=== PATIENT | male | born 2000 | race Caucasian/White ===

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

== ENCOUNTER 2020-06-28 00:22 | Emergency (ER) | payer MEDICAID ==
[~2020-06-28 00:22] MED LIST changes: +ONDA4TAB8 PO; +PROM25SU43 RC; -TRAZ-190 PO; +TRAZ-227 PO
[2020-06-28] MEDS ORDERED: LACTATED RINGERS 1,000 ML IV ONE ×2 (00:30→01:15)
[2020-06-28] MEDS ORDERED: LORazepam INJ 2 MG/ML (ATIVAN) VIAL IVP ONE (00:30)
[2020-06-28 00:47] LABS: ALBUMIN 4.8 GM/DL (3.2-4.5)
[2020-06-28 00:48] LABS: CHLORIDE 105 MMOL/L (98-107); POTASSIUM 3.8 MMOL/L (3.6-5.0); SODIUM 139 MMOL/L (135-145)
[2020-06-28 00:49] LABS: CALCIUM 9.2 MG/DL (8.5-10.1)
[2020-06-28 00:50] LABS: BASOPHILS # (AUTO) 0.1 10^3/uL (0.0-0.1); BASOPHILS % (AUTO) 1 % (0-10); EOSINOPHILS # (AUTO) 0.1 10^3/uL (0.0-0.3); EOSINOPHILS % (AUTO) 1 % (0-10); GLUCOSE 103 MG/DL (70-105); HEMATOCRIT 44 % (40-54); HEMOGLOBIN 14.6 g/dL (13.3-17.7); LYMPHOCYTES # (AUTO) 3.5 10^3/uL (1.0-4.0); LYMPHOCYTES % (AUTO) 33 % (12-44); MEAN CORPUSCULAR HEMOGLOBIN 31 pg (25-34); MEAN CORPUSCULAR HGB CONC 33 g/dL (32-36); MEAN CORPUSCULAR VOLUME 92 fL (80-99); MEAN PLATELET VOLUME 10.9 fL (9.0-12.2); MONOCYTES # (AUTO) 0.7 10^3/uL (0.0-1.0); MONOCYTES % (AUTO) 7 % (0-12); NEUTROPHILS # (AUTO) 6.2 10^3/uL (1.8-7.8); NEUTROPHILS % (AUTO) 58 % (42-75); PLATELET COUNT 196 10^3/uL (130-400); TOTAL PROTEIN 7.5 GM/DL (6.4-8.2); WHITE BLOOD COUNT 10.6 10^3/uL (4.3-11.0)
[2020-06-28 00:51] LABS: CARBON DIOXIDE 20 MMOL/L (21-32)
[2020-06-28 00:52] LABS: BILIRUBIN,TOTAL 0.3 MG/DL (0.1-1.0)
[2020-06-28 00:54] LABS: ALKALINE PHOSPHATASE 85 U/L (40-136); CREATININE SERUM 0.95 MG/DL (0.60-1.30); GFR ESTIMATED > 60
[2020-06-28 00:55] LABS: BUN/CREATININE RATIO 9
[2020-06-28 00:57] LABS: ALANINE AMINOTRANSFERASE 20 U/L (0-55); CREATINE KINASE 869 U/L (30-200); MAGNESIUM 2.1 MG/DL (1.6-2.4)
[2020-06-28 02:55] LABS: AMPHETAMINE SCREEN, URINE NEGATIVE (NEGATIVE); BARBITURATE SCREEN URINE NEGATIVE (NEGATIVE); BENZODIAZEPINES SCREEN URINE NEGATIVE (NEGATIVE); CANNABINOID SCREEN, URINE NEGATIVE (NEGATIVE); COCAINE SCREEN URINE NEGATIVE (NEGATIVE); METHADONE STAT NEGATIVE (NEGATIVE); METHAMPHETAMINE SCREEN URINE S NEGATIVE (NEGATIVE); OPIATE SCREEN URINE NEGATIVE (NEGATIVE); OXYCODONE STAT NEGATIVE (NEGATIVE); PROPOXYPHENE STAT NEGATIVE (NEGATIVE); TRICYCLIC ANTIDEPRESSANTS SCRE NEGATIVE (NEGATIVE)
--- NOTE | 2020-06-28 03:20 | ED Neurological Problem ---
General Chief Complaint: General Problems/Pain Stated Complaint: TWITCHES Nursing Triage Note: TO ED VIA [facility]UL[facility] INTO ROOM 5 WITH C/O TWITCHING SINCE Wednesday06/23/20 AFTER "MENTAL BREAKDOWN". C/O PAIN TO BACK, LEFT SIDE OF HEAD. Nursing Sepsis Screen: No Definite Risk Source: patient Exam Limitations: no limitations History of Present Illness Date Seen by Provider: Jun 28, 2020 Time Seen by Provider: 00:23 Initial Comments This 19-year-old young man presents to the emergency room via EMS with complaints of dystonic movements and headache. He reports the symptoms started and have been present since he had a "mental breakdown" on Wednesday, 6 days ago. He reports having episodes like this when he was younger but with less intensity. He denies taking any medications, drinking alcohol, or using any recent illicit drugs. 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 Allergies and Home Medications Allergies Coded Allergies: No Known Drug Allergies (Unverified , 04/02/17) Home Medications Hydroxyzine HCl 25 Mg Tablet, 25 MG PO TID, (Reported) Olanzapine 15 Mg Tab.rapdis, 15 MG SL DAILY, (Reported) Ondansetron 4 Mg Tab.rapdis, 4 MG PO Q4H Prescribed by: FAUSTINA SAENZ on 10/26/17 0501 Peg/Electrolytes 4,000 Ml Soln, 4,000 ML PO DAILY Prescribed by: SHAILESH MCGILL on 04/04/17 1158 Promethazine HCl 25 Mg Supp.rect, 25 MG RC Q4H Prescribed by: FAUSTINA SAENZ on 10/26/17 0501 Trazodone HCl 100 Mg Tablet, 200 MG PO HS, (Reported) TAKES 2 (100 MG) TABLETS Patient Home Medication List Home Medication List Reviewed: Yes Review of Systems Review of Systems Constitutional: no symptoms reported Eyes: No Symptoms Reported Ears, Nose, Mouth, Throat: no symptoms reported Respiratory: no symptoms reported Cardiovascular: no symptoms reported Gastrointestinal: no symptoms reported Genitourinary: no symptoms reported Musculoskeletal: no symptoms reported Skin: no symptoms reported Psychiatric/Neurological: See HPI Endocrine: No Symptoms Reported Hematologic/Lymphatic: No Symptoms Reported Past Tozflxz-Yxldco-Nydykn Hx Past Med/Social Hx: Reviewed Nursing Past Med/Soc Hx Patient Social History Alcohol Use: Past History Drug of Choice: HX: MARIJUANA, METH, COCAINE Smoking Status: Current Everyday Smoker Type Used: Cigarettes, Electronic/Vapor 2nd Hand Smoke Exposure: Yes Recent Infectious Disease Expo: No Recent Hopitalizations: No Immunizations Up To Date Tetanus Booster (TDap): Less than 5yrs PED Vaccines UTD: Yes Date of Influenza Vaccine: Apr 02, 2017 Seasonal Allergies Seasonal Allergies: Yes Past Medical History Surgeries: Yes (LT KNEE SCOPE) Adenoidectomy, Orthopedic, Tonsillectomy Respiratory: No Cardiac: No Neurological: No Reproductive Disorders: No Genitourinary: No Gastrointestinal: Yes Chronic Constipation Musculoskeletal: Yes Scoliosis Endocrine: Yes Hypothyroidsim HEENT: No Cancer: No Psychosocial: Yes (OCD; ANGER ISSUES) ADD/ADHD, Anxiety, PTSD, Bipolar, Violent Behavior Integumentary: No Blood Disorders: No Adverse Reaction/Blood Tranf: No Family Medical History No Pertinent Family Hx Physical Exam Vital Signs Vital Signs - First Documented 06/28/20 00:25 Temp 35.8 Pulse 76 Resp 16 B/P (MAP) 138/99 (112) Pulse Ox 98 O2 Delivery Room Air Capillary Refill : Less Than 3 Seconds Height, Weight, BMI Height: 5'11.00" Weight: 180lbs. 0.0oz. 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 Dystonic movements noted.) Crainal Nerves: normal hearing, normal speech, PERRL Coordination/Gait: normal finger to nose Motor/Sensory: no motor deficit, no sensory deficit Skin: normal color, warm/dry Progress/Results/Core Measures Results/Orders Lab Results Laboratory Tests Test 06/28/20 00:32 06/28/20 02:25 Range/Units White Blood Count 10.6 4.3-11.0 10^3/uL Red Blood Count 4.77 4.30-5.52 10^6/uL Hemoglobin 14.6 13.3-17.7 g/dL Hematocrit 44 40-54 % Mean Corpuscular Volume 92 80-99 fL Mean Corpuscular Hemoglobin 31 25-34 pg Mean Corpuscular Hemoglobin Concent 33 32-36 g/dL Red Cell Distribution Width 13.3 10.0-14.5 % Platelet Count 196 130-400 10^3/uL Mean Platelet Volume 10.9 9.0-12.2 fL Immature Granulocyte % (Auto) 0 % Neutrophils (%) (Auto) 58 42-75 % Lymphocytes (%) (Auto) 33 12-44 % Monocytes (%) (Auto) 7 0-12 % Eosinophils (%) (Auto) 1 0-10 % Basophils (%) (Auto) 1 0-10 % Neutrophils # (Auto) 6.2 1.8-7.8 10^3/uL Lymphocytes # (Auto) 3.5 1.0-4.0 10^3/uL Monocytes # (Auto) 0.7 0.0-1.0 10^3/uL Eosinophils # (Auto) 0.1 0.0-0.3 10^3/uL Basophils # (Auto) 0.1 0.0-0.1 10^3/uL Immature Granulocyte # (Auto) 0.0 0.0-0.1 10^3/uL Sodium Level 139 135-145 MMOL/L Potassium Level 3.8 3.6-5.0 MMOL/L Chloride Level 105 98-107 MMOL/L Carbon Dioxide Level 20 L 21-32 MMOL/L Anion Gap 14 5-14 MMOL/L Blood Urea Nitrogen 9 7-18 MG/DL Creatinine 0.95 0.60-1.30 MG/DL Estimat Glomerular Filtration Rate > 60 BUN/Creatinine Ratio 9 Glucose Level 103 70-105 MG/DL Calcium Level 9.2 8.5-10.1 MG/DL Corrected Calcium 8.5-10.1 MG/DL Magnesium Level 2.1 1.6-2.4 MG/DL Total Bilirubin 0.3 0.1-1.0 MG/DL Aspartate Amino Transf (AST/SGOT) 26 5-34 U/L Alanine Aminotransferase (ALT/SGPT) 20 0-55 U/L Alkaline Phosphatase 85 40-136 U/L Total Creatine Kinase 869 H 30-200 U/L Total Protein 7.5 6.4-8.2 GM/DL Albumin 4.8 H 3.2-4.5 GM/DL Serum Alcohol < 10 <10 MG/DL Urine Opiates Screen NEGATIVE NEGATIVE Urine Oxycodone Screen NEGATIVE NEGATIVE Urine Methadone Screen NEGATIVE NEGATIVE Urine Propoxyphene Screen NEGATIVE NEGATIVE Urine Barbiturates Screen NEGATIVE NEGATIVE Ur Tricyclic Antidepressants Screen NEGATIVE NEGATIVE Urine Phencyclidine Screen NEGATIVE NEGATIVE Urine Amphetamines Screen NEGATIVE NEGATIVE Urine Methamphetamines Screen NEGATIVE NEGATIVE Urine Benzodiazepines Screen NEGATIVE NEGATIVE Urine Cocaine Screen NEGATIVE NEGATIVE Urine Cannabinoids Screen NEGATIVE NEGATIVE My Orders Orders - ERASMO MEADOWS MD Alcohol (06/28/20 00:29) Cbc With Automated Diff (06/28/20 00:29) Comprehensive Metabolic Panel (06/28/20 00:29) Creatine Kinase (06/28/20 00:29) Drug Screen Stat (Urine) (06/28/20 00:29) Magnesium (06/28/20 00:29) Ed Iv/Invasive Line Start (06/28/20 00:29) Lactated Ringers (Lr 1000 Ml Iv Solution (06/28/20 00:30) Lorazepam Injection (Ativan Injection) (06/28/20 00:30) Lactated Ringers (Lr 1000 Ml Iv Solution (06/28/20 01:15) Medications Given in ED Current Medications Medications Dose Ordered Sig/Murali Route Start Time Stop Time Status Last Admin Dose Admin Lactated Ringer's 1,000 ml @ 0 mls/hr Q0M ONCE IV 06/28/20 00:30 06/28/20 00:31 DC 06/28/20 00:38 999 MLS/HR Lactated Ringer's 1,000 ml @ 0 mls/hr Q0M ONCE IV 06/28/20 01:15 06/28/20 01:16 DC 06/28/20 01:10 999 MLS/HR Lorazepam 1 mg ONCE ONCE IVP 06/28/20 00:30 06/28/20 00:31 DC 06/28/20 00:38 1 MG Vital Signs/I&O 06/28/20 06/28/20 00:25 03:35 Temp 35.8 35.8 Pulse 76 81 Resp 16 16 B/P (MAP) 138/99 (112) 116/48 (112) Pulse Ox 98 98 O2 Delivery Room Air Room Air Blood Pressure Mean: 112 Progress Progress Note : Progress Note Patient received a milligram of Ativan which seemed to calm him considerably. He did not have significant dystonic movements throughout the rest of his ER visit. In fact, when he was not engaged with a care provider and was resting quietly in the room, he did not appear to have any dystonic movements at all. Dystonic movements also seem to dissipate when he was distracted during a neuro exam. Work-up was unremarkable except for elevated creatinine kinase. He received 2 L of IV fluid. He also reported having a similar problem when he was younger but to a lesser extent. He does not recall receiving any particular work-up such as imaging of the head or a neurology referral. Symptoms seem to resolve without treatment. I did asked the patient about use of any illicit substances that would not show up on the drug screen such as bath salts. He denies use of illicit substances whatsoever in the recent days. I encouraged the patient to return if symptoms worsen again and to discuss imaging with his primary care provider if symptoms persist. Departure Impression Primary Impression: Dystonic movements Additional Impression: Elevated creatine kinase level Disposition: 01 HOME, SELF-CARE Condition: Improved Departure-Patient Inst. Decision time for Depature: 03:16 Referrals: [facility] [place] (PCP/Family) Primary Care Physician Patient Instructions: Dystonia, Rhabdomyolysis Add. Discharge Instructions: Drink plenty of clear liquids to stay well-hydrated. Please follow-up with a primary care provider soon as possible. Call tomorrow for an appointment. Return to care if you have worsening symptoms. Call with questions or concerns. All discharge instructions reviewed with patient and/or family. Voiced understanding. ERASMO MEADOWS MD Jun 28, 2020 03:20
[2020-06-28 03:35] VITALS: BP 116/48
== END 2020-06-28 03:35 | disposition home or self-care (01) ==
LOC: EDUNIT# 00:22 → ER 00:23
DX: R25.8 Other abnormal involuntary movements (principal); R74.8 Abnormal levels of other serum enzymes; F31.9 Bipolar disorder, unspecified; F41.9 Anxiety disorder, unspecified; F17.210 Nicotine dependence, cigarettes, uncomplicated; F17.290 Nicotine dependence, other tobacco product, uncomplicated
CPT/HCPCS: 36415; 80053; 80306; 80320; 82550; 83735; 85025